=== PATIENT | female | born 1995 | race Caucasian/White ===

== ENCOUNTER 2019-01-30 11:18 | Day surgery (SDC) | payer BC ==
[~2019-01-30 11:18] MED LIST: Lactated Ringers 1,000 ML IV SCH; ceFAZolin 2 GM in Premix Bag 1 BAG IV ONE
--- NOTE | 2019-01-30 12:52 | PCM.PREANE ---
Preanesthetic Assessment - Anesthesia/Transfusion/Family Hx Anesthesia History: Prior Anesthesia Without Reaction Other Type of Anesthesia Reaction Comment: "mother and myself wake up agitated" Family History of Anesthesia Reaction: No Transfusion History: No Prior Transfusion(s) - Review of Systems General: No Symptoms Pulmonary: No Symptoms Cardiovascular: No Symptoms Gastrointestinal: No Symptoms Neurological: No Symptoms Other: Reports: Anxiety - Physical Assessment NPO Status Date: 01/29/19 NPO Status Time: 23:00 O2 Sat by Pulse Oximetry: 98 Respiratory Rate: 16 Vital Signs: Last Vital Signs Temp 98.2 F 01/30/19 11:45 Pulse Resp 16 01/30/19 11:45 BP 130/76 01/30/19 11:45 Pulse Ox 98 01/30/19 11:45 Height: 5 ft 4 in Weight: 58.967 kg ASA Class: 2 Mental Status: Alert & Oriented x3 Airway Class: Mallampati = 2 Dentition: Reports: Normal Dentition ROM/Head Extension: Full Lungs: Clear to Auscultation, Normal Respiratory Effort Cardiovascular: Regular Rate, Regular Rhythm - Allergies Allergies/Adverse Reactions: Allergies Allergy/AdvReac Type Severity Reaction Status Date / Time No Known Allergies Allergy Verified 01/26/19 12:03 - Anesthesia Plan Pre-Op Medication Ordered: None - Acknowledgements Anesthesia Type Planned: General Anesthesia Pt an Appropriate Candidate for the Planned Anesthesia: Yes Alternatives and Risks of Anesthesia Discussed w Pt/Guardian: Yes Pt/Guardian Understands and Agrees with Anesthesia Plan: Yes Additional Comments: PMH: cervical radiculopathy PLAN: ga-lma PreAnesthesia Questionnaire HEENT History: Reports: Other (See Below) Other HEENT History: wears glasses Cardiovascular History: Reports: None Respiratory History: Reports: None Gastrointestinal History: Reports: None Genitourinary History: Reports: UTI, Recurrent Other Genitourinary History: recurrent UTI's in the past Musculoskeletal History: Reports: Back Pain, Chronic, Fracture, Fibromyalgia, Neck Pain, Chronic Other Musculoskeletal History: hx fx lt humerous, rt elbow, left ankle, rt knee dislocation and cracked rib Neurological History: Reports: Concussion, Head Trauma Psychiatric History: Reports: Depression, Other (See Below) Other Psychiatric History: depression in the past Endocrine/Metabolic History: Other Endocrine/Metabolic History: "thyroid issues in the past" Hematologic History: Reports: None Immunologic History: Reports: None Oncologic (Cancer) History: Reports: None Dermatologic History: Reports: Other (See Below) Other Dermatologic History: acne - Past Surgical History Head Surgeries/Procedures: Reports: None HEENT Surgical History: Reports: Adenoidectomy, Tonsillectomy Cardiovascular Surgical History: Reports: None Respiratory Surgical History: Reports: None GI Surgical History: Reports: None Female Surgical History: Reports: None Endocrine Surgical History: Reports: None Neurological Surgical History: Reports: None Musculoskeletal Surgical History: Reports: None Oncologic Surgical History: Reports: None Dermatological Surgical History: Reports: None - SUBSTANCE USE Smoking Status *Q: Never Smoker Recreational Drug Use History: No - HOME MEDS Home Medications: Home Meds Minocycline HCl 100 mg PO DAILY 01/26/19 [History] - CURRENT (IN HOUSE) MEDS Current Meds: Current Medications Lactated Ringer's (Ringers, Lactated) 1,000 mls @ 125 mls/hr IV ASDIRECTED [facility] Last Admin: 01/30/19 12:28 Dose: 125 mls/hr Discontinued Medications Cefazolin Sodium/Dextrose 2 gm (/ Premix) 50 mls @ 100 mls/hr IV ONETIME ONE Stop: 01/29/19 13:40
--- NOTE | 2019-01-30 13:20 | PCM.OPNOTE ---
- General Post-Op/Procedure Note Date of Surgery/Procedure: 01/30/19 Operative Procedure(s): 1. excision of accessory navicular bone right foot. 2. reconstruction of posterior tibial tendon right foot Findings: consistent with diagnosis Pre Op Diagnosis: 1. accessory navicular bone right foot. 2. posterior tibial tendinitis right foot Post-Op Diagnosis: 1. accessory navicular bone right foot. 2. posterior tibial tendinitis right foot Anesthesia Technique: General LMA Primary Surgeon: Rodney Marie Anesthesia Provider: Margie Tilley Pathology: hypertrophic bone from navicular tuberosity right foot accessory navicular bone right foot EBL in mLs: 10 Complications: none Condition: Good Free Text/Narrative:: material: 4-0 Stratafix 4-0 Vicryl 3-0 Vicryl [place] Sonic [place] x 2 with Fibrewire 0 x 2 injectables: 10 ml 0.5 % marcaine plain
[2019-01-30] MEDS ORDERED: Bupivacaine 0.5% 10 ML SDV ONE (13:22)
[2019-01-30] MEDS ORDERED: Midazolam 1 MG/ML 2 ML SDV ONE ×2 (13:37→13:53)
[2019-01-30] MEDS ORDERED: Propofol 200 MG/20 ML SDV ONE (13:37)
[2019-01-30] MEDS ORDERED: fentaNYL 100 MCG/2 ML SDV ONE (13:37)
[2019-01-30] MEDS ORDERED: Dexamethasone 4 MG/ML 5 ML MDV ONE (13:38)
[2019-01-30] MEDS ORDERED: Ondansetron 4 MG/2 ML SDV ONE (13:38)
[2019-01-30] MEDS ORDERED: ceFAZolin/Dextrose,Iso-Osmotic 2 GM/50 ML Duplex Bag IV ONE (13:42)
--- NOTE | 2019-01-30 14:47 | PN ---
PREOPERATIVE PROGRESS NOTE PATIENT IDENTIFICATION: The patient is a 23-year-old female. PLANNED PROCEDURE: 1. Excision of accessory navicular bone, right foot. 2. Reconstruction of posterior tibial tendon, right foot. History and physical was completed on January 25, [address] Megan Bautista. ACTIVE PROBLEMS: 1. Abdominal bloating. 2. control. 3. Cervical disk disease. 4. Cervical radiculopathy. 5. Cervico-occipital neuralgia. 6. Cystic acne. 7. Flu vaccine need. 8. Headache. 9. Insomnia. 10.Migraines. 11.Myofascial pain syndrome. 12.Neck pain. 13.Need for Tdap vaccination. 14.Preop evaluation. 15.Upper back pain. ALLERGIES: The patient has no known drug allergies. CURRENT MEDICATIONS: 1. Ketamine hydrochloride powder compounded cream, ketamine 10%, gabapentin 6%, bupivacaine 2%, baclofen 2%, and clonidine 0.2%. 2. Lidocaine-prilocaine 2.5-2.5% external cream apply 3 times a day at the lower back. 3. Methocarbamol 750 mg oral tablet, take 1 tablet by mouth 3 times daily as needed for muscle spasms. 4. Minocycline hydrochloride 100 mg oral capsule, take 1 capsule twice daily for 1 month, then once daily. 5. Multivitamin adult oral tablet. PAST MEDICAL HISTORY: Significant for history of depression and history of thyroid disease. PAST SURGICAL HISTORY: History of tonsillectomy with adenoidectomy. LABORATORY DATA: HCG negative. White blood cell 5.01, red blood cell 4.53, hemoglobin 13.8, hematocrit 40.2, platelets 205. INR 0.99, PTT 29.3. Sodium 140, potassium 4.3, chloride 102, CO2 of 30.7, random glucose 79, BUN 19, creatinine 0.9, calcium was 9.2. Chest x-ray showed no acute cardiopulmonary process. EKG showed normal sinus rhythm. The patient presents for surgery today. All questions have been answered. No guarantees expressed or implied. ROSA M DONG /[id number]
[2019-01-30] MEDS ORDERED: fentaNYL 100 MCG/2 ML SDV IVPUSH PRN (15:18)
--- NOTE | 2019-01-30 16:30 | PCM48HPAN ---
Post Anesthesia Note - EVALUATION WITHIN 48HRS OF ANESTHETIC Vital Signs in Normal Range: Yes Patient Participated in Evaluation: Yes Respiratory Function Stable: Yes Airway Patent: Yes Cardiovascular Function Stable: Yes Hydration Status Stable: Yes Pain Control Satisfactory: Yes Nausea and Vomiting Control Satisfactory: Yes Mental Status Recovered: Yes Resp Rate: 13
--- NOTE | 2019-01-30 16:30 | PCM.POSTAN ---
POST ANESTHESIA ASSESSMENT - MENTAL STATUS Mental Status: Alert, Oriented - RESPIRATORY Respiratory Status: Respiratory Rate WNL, Airway Patent, O2 Saturation Stable - CARDIOVASCULAR CV Status: Pulse Rate WNL, Blood Pressure Stable - GASTROINTESTINAL GI Status: No Symptoms - POST OP HYDRATION Hydration Status: Adequate & Stable
[2019-01-30] MEDS ORDERED: Acetaminophen/HYDROcodone 325-5 MG Tab PO PRN (16:54)
[2019-01-30] MEDS ORDERED: Acetaminophen/HYDROcodone 325-5 MG Tab ONE (16:58)
[2019-01-30] MEDS ORDERED: Ketorolac 30 MG/ML SDV IVPUSH ONE (17:08)
--- NOTE | 2019-01-31 04:00 | OR ---
SURGEON: Rodney Marie DPM DATE OF PROCEDURE: 01/30/2019 PRIMARY SURGEON: Rodney Marie DPM PREOPERATIVE DIAGNOSIS: Accessory navicular bone and posterior tibial tendinitis, right foot. POSTOPERATIVE DIAGNOSIS: Accessory navicular bone and posterior tibial tendinitis, right foot. PROCEDURE: 1. Excision of accessory navicular bone, right foot. 2. Reconstruction of posterior tibial tendon, right foot. CONSENT: Signed and in the chart with a witness present. ANESTHESIA: General. HEMOSTASIS: Above ankle pneumatic tourniquet inflated to a pressure of 250 mmHg after an Esmarch bandage exsanguination of the right foot. MATERIALS: 3-0 Vicryl, 4-0 Vicryl, [place] SonicAnchor x2, 0 Force Fiber suture x2, and 4-0 Stratafix. INJECTABLES: 10 mL of 0.5% Marcaine plain. ESTIMATED BLOOD LOSS: 10 mL. PATHOLOGY: Accessory navicular bone and resected portion of the navicular tuberosity of the right foot. JUSTIFICATION FOR THE PROCEDURE: The patient has longstanding complaint of pain from an extremely prominent and large navicular tuberosity compounded by an accessory navicular bone on the right foot. Most recently, two months ago, the patient exacerbated the condition once again. This time she was walking on ice when she everted her foot and subsequently not appreciating the extent of injury she ran three miles three days later and this led to her latest round of extreme pain and inability to walk. She has been primarily ambulating with a knee scooter since that time, but she has a history of pain in this area clearly caused by the large navicular tuberosity and the accessory navicular bone impacting the function of her posterior tibial tendon. The patient understands the risks and benefits of surgery and wishes to proceed to have problematic bone removed and have the tendon anchored back to the remaining bone. The details of the surgery have been covered repeatedly and in detail with the patient. The patient consents for surgery today. All complications including postoperative pain, chronic pain, failure to adequately improve symptoms thoroughly have been discussed and no guarantees have been given or implied. The patient agrees with the planned procedure and has signed the consent form with a witness present and it has been placed in the patient's chart. PROCEDURE IN DETAIL: The patient was brought to the operating room, placed on the operating table in a supine position, at which time general anesthesia was administered after aseptic scrub and drape of the patient's right lower extremity. Marking pen was used to victor manuel the landmark bones in the course of posterior tibial tendon. Intraoperative fluoroscopy was used prior to incision and throughout the procedure as needed to confirm positioning of the planned incision site and a 6 cm curvilinear incision was planned and made about the medial aspect over the navicular tuberosity following Esmarch bandage exsanguination and inflation of the pneumatic above ankle tourniquet. The incision was deepened with a combination of sharp and blunt dissection. Careful layered dissection was performed with retraction of all neurovascular and tendinous structures as dissection continued down to the level of the posterior tibial tendon, which was dissected off the navicular tuberosity and accessory navicular bone and retracted out of the way. Bleeders were bovied as necessary and the posterior tibial tendon was readily identified and from the navicular tuberosity and accessory navicular bone, which was posterior and slightly inferior in portions to the navicular tuberosity. Area was flushed with normal sterile saline, examined, and then a power saw were utilized to resect the prominent navicular tuberosity and a large portion of the accessory navicular bone. The area was flushed again with normal sterile saline and a small remaining portion of the accessory navicular bone was identified and removed with careful dissection from the posterior tibial tendon. Area was examined, flushed again, and rasped smooth with a power rasp, preparing the site for the SonicAnchor system. SonicAnchor test hole driller-held was used to make two small holes over the exposed flattened surface of the remaining navicular tuberosity to prepare it for placement of the two anchors. Two SonicAnchor pieces, each one loaded with 0 Force Fiber suture were placed into each hole and 1 x 1 axial loading was applied perpendicular to the surface of the bone for insertion of each SonicAnchor utilizing [place] system. Each anchor was then tested and determined to be extremely strong with the desired implantation within the bone being achieved. The foot was kept in a slightly inverted and minimally plantar flexed position during this time, and the sutures from the Force Fiber exiting the anchors that were now implanted in the bone were then sutured to the posterior tibial tendon to reapproximate the tendon, advancing it upward from the more inferior portion to the medial exposed navicular tuberosity and the needles were cut from the sutures. All four needles to one each suture and hand ties were used to tie the tendon down to the bone. The area was flushed and reinspected again and reattachment and positioning of the tendon to the bone was judged to be excellent. The overlying periosteal tissue and fascial tissue were then sutured with 3-0 Vicryl suture over the tendon insertion area to further strengthen the insertion and following this the subcutaneous layer of skin was reapproximated with 4-0 Vicryl and the superficial skin with 4-0 Stratafix running subcuticular stitch. A 10 mL of 0.5% Marcaine plain was injected about the surgical site which was then covered with Betadine-soaked Xeroform gauze, 4 x 4 fluff gauze, Kerlix roll, stockinette, and cast padding. During application of the dressings, the tourniquet was deflated at a time of 88 minutes and the fiberglass casting was applied with the foot held in a slightly inverted position. The patient tolerated the procedure and the anesthesia well and there was a prompt hyperemic response noted to all digits of the right foot upon deflation of the tourniquet. The patient was then transported to the recovery room and in the recovery room cast cutter was utilized to bivalve the cast allowing for any potential swelling and this was secured with a 4-inch Frederic bandage. The patient discharged home with instructions for postoperative pain management and postoperative care and will be in touch with me to discuss followup. The patient maintains my phone number and instructed to call with any concerns at any time. The patient has also been prescribed antinausea medication and is being provided with a shower bag to allow her to keep the dressings and the cast clean, dry, and intact at all times. ROSA M / LETITIA /[id number]
== END 2019-01-30 18:10 | disposition home or self-care (01) ==
LOC: MW.SDS 11:18
PROVIDERS: ATTEND Podiatrist Foot & Ankle Surgery
DX: M76.821 Posterior tibial tendinitis, right leg (principal); Q66.89 Other specified congenital deformities of feet; M50.10 Cervical disc disorder with radiculopathy, unspecified cervical region; M79.18 Myalgia, other site
CPT/HCPCS: 28238; A9270; C1713; J0690; J1100; J1885; J2001; J2250; J2405; J2704; J3010; J3490; J7120; 93005